=== PATIENT | female | born 1980 ===

== ENCOUNTER 2017-02-08 21:05 | Emergency (ER) | payer OTHER ==
[2017-02-08 21:25] VITALS: BP 144/75; PULSE 96; RESP 16; TEMP 99.6; O2SAT 100
[2017-02-08] MEDS ORDERED: Sodium Chloride 0.9% 1,000 ML IV STA (21:44)
--- NOTE | 2017-02-08 22:25 | ED PDOC ---
HPI: Abdomen Time Seen by Provider: 02/08/17 21:23 Chief Complaint (Nursing): Abdominal Pain Chief Complaint (Provider): Abdominal Pain History Per: Patient History/Exam Limitations: no limitations Onset/Duration Of Symptoms: Hrs (about 9 hours [employer]) Current Symptoms Are (Timing): Constant Quality Of Discomfort: Aching Associated Symptoms: denies: Nausea, Vomiting, Diarrhea, Urinary Symptoms Additional Complaint(s): Patient is a 37 y/o female with a past medical history of a section, who presents to the ED complaining of right lower quadrant abdominal pain since 12:00 (about 9 hours [employer]). Pain is described as constant and aching. Patient denies any vomiting, nausea, diarrhea, fever, chills, vaginal bleeding, vaginal discharge, dysuria, hematuria, or other urinary symptoms. PCP: Nayan Allen Abnormal Vaginal Bleeding: No Past Medical History Reviewed: Historical Data, Nursing Documentation, Vital Signs Vital Signs: Last Vital Signs Temp 99.6 F 02/08/17 21:21 Pulse 96 H 02/08/17 21:21 Resp 16 02/08/17 21:21 BP 144/75 02/08/17 21:21 Pulse Ox 100 02/08/17 22:38 - Medical History PMH: No Chronic Diseases - Surgical History Surgical History: - Family History Family History: States: No Known Family Hx - Allergies Allergies/Adverse Reactions: Allergies Allergy/AdvReac Type Severity Reaction Status Date / Time No Known Allergies Allergy Verified 02/08/17 21:20 Review of Systems ROS Statement: Except As Marked, All Systems Reviewed And Found Negative Constitutional: Negative for: Fever, Chills Gastrointestinal: Positive for: Abdominal Pain (Right lower quadrant). Negative for: Nausea, Vomiting, Diarrhea Genitourinary Female: Negative for: Dysuria, Hematuria, Vaginal Discharge, Vaginal Bleeding Physical Exam - Reviewed Nursing Documentation Reviewed: Yes Vital Signs Reviewed: Yes - Physical Exam Appears: Positive for: No Acute Distress Head Exam: Positive for: ATRAUMATIC, NORMOCEPHALIC Skin: Positive for: Normal Color, Warm, Dry Eye Exam: Positive for: Normal appearance, EOMI, PERRL Neck: Positive for: Normal, Painless ROM, Supple Cardiovascular/Chest: Positive for: Regular Rate, Rhythm. Negative for: Murmur Respiratory: Positive for: Normal Breath Sounds. Negative for: Respiratory Distress Gastrointestinal/Abdominal: Positive for: Soft, Tenderness (Right lower quadrant tenderness) Pelvic Exam: Positive for: External Exam Normal, Speculum Exam Normal, Bimanual Exam Normal, No Cerv. Motion Tender, No Masses Back: Positive for: Normal Inspection. Negative for: L CVA Tenderness, R CVA Tenderness, Vertebral Tenderness Extremity: Positive for: Normal ROM. Negative for: Pedal Edema, Deformity Neurologic/Psych: Positive for: Alert, Oriented (x3). 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 There is bilateral adnexal prominence. ABDOMEN and PELVIS: Intraperitoneal space: There is no significant fluid.There is no free air. Bones/joints: There are degenerative changes in the osseus structures. There are degenerative changes in the osseus structures. Soft tissues: There is a small fat containing umbilical hernia. Vasculature: Vascular structures are unremarkable. Lymph nodes: There is no pathologic adenopathy. IMPRESSION: Fatty liver, no acute solid visceral or bowel abnormality, no CT findings of appendicitis Additional findings as described above Patient is feeling well. States that lately her Hgb has been 7 and she is following up with Dr. Allen next week. Will d/c home. Return precautions discussed. Scribe Attestation: Documented by Shavon Vargas, acting as a scribe for Alcides Kwok MD Provider Scribe Attestation: All medical record entries made by the Scribe were at my direction and personally dictated by me. I have reviewed the chart and agree that the record accurately reflects my personal performance of the history, physical exam, medical decision making, and the department course for this patient. I have also personally directed, reviewed, and agree with the discharge instructions and disposition. Disposition - Clinical Impression Clinical Impression: Abdominal pain, Anemia - Patient ED Disposition Is Patient to be Admitted: No - Disposition Disposition: Routine/Home Disposition Time: 00:43 Condition: STABLE Instructions: Acute Abdominal Pain (ED), Anemia (ED) Forms: [employer] (Serbian)
[2017-02-08 22:43] LABS: RBC URINE 3 /hpf (0-3); URINE BILIRUBIN NEGATIVE (NEGATIVE); URINE BLOOD NEGATIVE (NEGATIVE); URINE COLOR YELLOW (YELLOW); URINE GLUCOSE (UA) NEG (Normal); URINE KETONE NEGATIVE (NEGATIVE); URINE LEUKOCYTE ESTERASE NEG Leu/uL (Negative); URINE PROTEIN NEGATIVE (NEGATIVE); WBC URINE 1 /hpf (0-5)
[2017-02-08 23:23] LABS: BASO % 0.6 % (0.0-2.0); EOS # 0.1 K/uL (0.0-0.7); EOS % 1.3 % (0.0-4.0); HEMATOCRIT 24.7 % (34.0-47.0); LYMPH # 1.5 K/uL (1.0-4.3); LYMPH % 29.8 % (20.0-40.0); MEAN CORPUSCULAR HEMOGLOBIN 17.3 pg (27.0-31.0); MEAN CORPUSCULAR HGB CONC 28.1 g/dL (33.0-37.0); MEAN PLATELET VOLUME 9.5 fl (7.2-11.7); MONO # 0.6 K/uL (0.0-0.8); NEUT # 2.8 K/uL (1.8-7.0); NEUT % 57.3 % (50.0-75.0); NRBC % 0.1 % (0.0-0.0); RED CELL DISTRIBUTION WIDTH 21.5 % (11.5-14.5)
[2017-02-08 23:36] LABS: ALKALINE PHOSPHATASE 52 U/L (38-126); ALT/SGPT 27 U/L (9-52); AST/SGOT 14 U/L (14-36); BILIRUBIN,TOTAL 0.2 mg/dl (0.2-1.3); BLOOD UREA NITROGEN 10 mg/dl (7-17); CALCIUM 8.8 mg/dL (8.4-10.2); CARBON DIOXIDE 25 mmol/L (22-30); CHLORIDE 106 mmol/L (98-107); GFR AFRICAN-AMERICAN > 60; GLUCOSE,RANDOM 106 mg/dL (65-105); LIPASE 65 U/L (23-300); SODIUM 141 mmol/l (132-148); TOTAL PROTEIN 7.3 G/DL (6.3-8.2)
[2017-02-08] MEDS ORDERED: Iohexol 300 100 ML IJ ONE (23:52)
[2017-02-08] MEDS ORDERED: Sodium Chloride 0.9% 50 ML IV ONE (23:52)
[2017-02-09 00:19] LABS: MEAN CELL VOLUME 61.8 fl (81.0-99.0)
--- NOTE | 2017-02-09 11:21 | CT ---
PROCEDURE: CT Abdomen and Pelvis with contrast HISTORY: RLQ pain COMPARISON: None. TECHNIQUE: Following the intravenous administration of iodinated contrast material, a CT examination of the abdomen and pelvis performed from the domes of the diaphragms to the symphysis pubis with reformatted datasets provided not only axial but also sagittal and coronal planes. Oral contrast was not administered as per referring physician request. Contrast dose: Omnipaque 300, 95 cc. Radiation dose: Total exam DLP = 1128.36 mGy-cm. This CT exam was performed using one or more of the following dose reduction techniques: Automated exposure control, adjustment of the mA and/or kV according to patient size, and/or use of iterative reconstruction technique. FINDINGS: LOWER THORAX: Trace bibasilar dependent atelectasis. No pleural or pericardial effusion. LIVER: Hepatic steatosis is appreciated with the liver otherwise unremarkable. GALLBLADDER AND BILE DUCTS: Unremarkable. PANCREAS: Unremarkable. No gross lesion or ductal dilatation. SPLEEN: Unremarkable. ADRENALS: Unremarkable. No mass. KIDNEYS AND URETERS: Unremarkable. No hydronephrosis. No solid mass. VASCULATURE: Unremarkable. No aortic aneurysm. BOWEL: Unremarkable. No obstruction. No gross mural thickening. APPENDIX: Normal appendix. PERITONEUM: Unremarkable. No free fluid. No free air. LYMPH NODES: Unremarkable. No enlarged lymph nodes. BLADDER: Unremarkable. REPRODUCTIVE: Unremarkable. BONES: No acute fracture. OTHER FINDINGS: There is a tiny umbilical hernia containing only fat. IMPRESSION: Hepatic steatosis is appreciate with liver otherwise unremarkable appearing. No definite acute abdominal or pelvic findings as discussed above. Further clinical correlation is advised. Concordant preliminary report from [facility], 02/09/2017.
== END 2017-02-09 00:56 | disposition home or self-care (01) ==
LOC: H.ER 21:05
DX: R10.9 Unspecified abdominal pain (principal); D64.9 Anemia, unspecified; K42.9 Umbilical hernia without obstruction or gangrene; K76.0 Fatty (change of) liver, not elsewhere classified
CPT/HCPCS: 74177; 80053; 81003; 81025; 83690; 85025; 96374; 99283; J1885; J7040; Q9967